=== PATIENT | female | born 1970 | race Caucasian/White ===

== ENCOUNTER 2019-03-05 11:09 | Emergency (ER) | payer OTHER ==
[2019-03-05 11:15] VITALS: RESP 18; TEMP 98.1
[2019-03-05] MEDS ORDERED: LIDOCAINE 1% INJ 10MG/ML (20 ML MDV) SQ ONE (11:40)
--- NOTE | 2019-03-05 12:03 | ED ---
Wound/Laceration HPI - General Chief Complaint: Wound/Laceration Stated Complaint: leg lac Time Seen by Provider: 03/05/19 11:40 Source: patient, RN notes reviewed, old records reviewed Mode of arrival: ambulatory Limitations: no limitations - History of Present Illness Initial Comments: 48-year-old female presents today for evaluation for chief complaint of a laceration over her right eye. Patient reports that she was cutting a box, and helping up somewhat mattress for her friend, when she used a knife Slipped and stabbed herself in the right side. Patient reports that she has full range of motion of her leg. She has normal sensation. She denies any other complaints. Patient reports her tetanus shot is up-to-date. - Related Data Allergies Allergy/AdvReac Type Severity Reaction Status Date / Time raspberry Allergy Anaphylaxis Verified 03/05/19 11:11 Review of Systems ROS Statement: Those systems with pertinent positive or pertinent negative responses have been documented in the HPI. ROS Other: All systems not noted in ROS Statement are negative. Past Medical History Past Medical History: Cancer Additional Past Medical History / Comment(s): uterine CA History of Any Multi-Drug Resistant Organisms: None Reported Past Surgical History: Hysterectomy Past Psychological History: No Psychological Hx Reported Smoking Status: Never smoker Past Alcohol Use History: None Reported Past Drug Use History: None Reported General Exam - General Exam Comments Initial Comments: 48-year-old female. Alert and oriented 3. Patient appears in no distress. Limitations: no limitations General appearance: alert, in no apparent distress Head exam: Present: atraumatic, normocephalic, normal inspection Eye exam: Present: normal appearance, PERRL, EOMI. Absent: scleral icterus, conjunctival injection, periorbital swelling ENT exam: Present: normal exam, mucous membranes moist Neck exam: Present: normal inspection. Absent: tenderness, meningismus, lymphadenopathy Respiratory exam: Present: normal lung sounds bilaterally. Absent: respiratory distress, wheezes, rales, rhonchi, stridor Cardiovascular Exam: Present: regular rate, normal rhythm, normal heart sounds. Absent: systolic murmur, diastolic murmur, rubs, gallop, clicks GI/Abdominal exam: Present: soft, normal bowel sounds. Absent: distended, tenderness, guarding, rebound, rigid Psychiatric exam: Present: normal affect, normal mood Skin exam: Present: warm, dry, intact, normal color, other (Patient has a 3 cm laceration over the anterior aspect of the right thigh. Wound is linear. Full range of motion of the lower leg and sensation distally.). Absent: rash Course Vital Signs 03/05/19 11:11 Temperature 98.1 F Pulse Rate 91 Respiratory 18 Rate Blood Pressure 144/95 O2 Sat by Pulse 98 Oximetry Procedures - Laceration Laceration #1 Site: lower extremity (Right thigh) Size (cm): 3 Description: linear Anesthetic Used: lidocaine 1% Anesthesia Technique: local infiltration Amount (mls): 3 Pre-repair: wound explored Size of Sutures: 6-0 Number of Sutures: 3 Technique: simple, interrupted Patient Tolerated Procedure: no complications Medical Decision Making - Medical Decision Making 48-year-old female. Alert and oriented presents today for a laceration of her right thigh. Checks like herself with a knife trying to open a box. Patient at this time is up-to-date on her tetanus. Wound was earlier given, and closed with 3 sutures. Discussed monitoring for infection for any redness swelling or drainage. Discussed return parameters. All questions were answered. Disposition Clinical Impression: Thigh laceration Disposition: HOME SELF-CARE Condition: Good Instructions (If sedation given, give patient instructions): Laceration (ED), Care For Your Stitches (ED) Additional Instructions: Please return to the emergency room in 8-10 days to have sutures removed. Please leave wound covered for the first 24-48 hours and then leave open to air after that time. Please use clean soap and water to clean the suture area to prevent scabbing over the top of your sutures. Please watch for any signs of infection which may include but not limited to increased pain, swelling, redness, fever or chills. Please return to the emergency room if any signs of infection do occur. Please return to the emergency room for any other concerns or complications. Is patient prescribed a controlled substance at d/c from ED?: No Referrals: None,Stated [Primary Care Provider] - 1-2 days Time of Disposition: 12:05
[2019-03-05 12:32] VITALS: BP 133/90; PULSE 81
== END 2019-03-05 12:31 | disposition home or self-care (01) ==
LOC: EC 11:09
DX: S71.111A Laceration without foreign body, right thigh, initial encounter (principal); Z91.018 Allergy to other foods; Z85.42 Personal history of malignant neoplasm of other parts of uterus; Z90.710 Acquired absence of both cervix and uterus; W26.0XXA Contact with knife, initial encounter; Y93.89 Activity, other specified; Y92.009 Unspecified place in unspecified non-institutional (private) residence as the place of occurrence of the external cause
CPT/HCPCS: 99283; 12002; J2001